=== PATIENT | male | born 1955 | race Two or more races ===

== ENCOUNTER 2018-09-26 14:29 | Emergency (ER) | payer BC ==
[~2018-09-26] VITALS: Ht 170.2 cm; Wt 59.9 kg
[2018-09-26 14:35] VITALS: BP 157/85
--- NOTE | 2018-09-26 16:12 | NUR ---
Rx provided, cleansed abrasion on head. Patient discharged to home in stable condition. Written and verbal after care instructions given. Patient verbalizes understanding of instruction.
== END 2018-09-26 16:15 | disposition home or self-care (01) ==
LOC: ER 14:39
DX: S02.2XXA Fracture of nasal bones, initial encounter for closed fracture (principal); S00.03XA Contusion of scalp, initial encounter; S00.83XA Contusion of other part of head, initial encounter; I10 Essential (primary) hypertension; E11.9 Type 2 diabetes mellitus without complications; F17.200 Nicotine dependence, unspecified, uncomplicated; Y04.8XXA Assault by other bodily force, initial encounter; Y93.89 Activity, other specified; Y92.89 Other specified places as the place of occurrence of the external cause; Y99.8 Other external cause status
CPT/HCPCS: 70450-TC; 70486-TC